=== PATIENT | male | born 1960 | race Caucasian/White ===

== ENCOUNTER 2017-08-16 08:52 | Emergency (ER) | payer BC ==
[~2017-08-16] VITALS: Ht 177.8 cm; Wt 83.9 kg
--- NOTE | ~2017-08-16 | EKG ---
[place] [address] [facility] [place] [address] ELECTROCARDIOGRAM REPORT Name: ANDREZ ALLISON Room #: DEP [place]#: [id number] Admission: 08/16/17 Attend Phys: Discharge: 08/16/17 Date of : 64 Report #: [id number] THIS REPORT FOR: //name// [facility] ED Test Date: 2017-08-16 Test Time: 09:44:28 Pat Name: ANDREZ ALLISON Department: Room: Gender: Mine Engineer: [facility] : 1960 Requested By: Victor M Raphael Order Number: [id number] MD: Vazquez Cano Measurements Intervals [place] Rate: 72 P: [place]: QRS: 23 QRSD: 101 T: 7 QT: 376 QTc: 412 Interpretive Statements Sinus rhythm. Borderline ST elevation, lateral leads No previous ECG available for comparison Electronically Signed On 08-16-2017 13:50:30 [employer] by Vazquez Cano [email or web address] <ELECTRONICALLY SIGNED> By: Vazquez Cano MD 08/16/17 1350 0944 0944 Vazquez Cano MD /GWEN
[2017-08-16] MEDS ORDERED: OSELB75 PO (09:24)
[2017-08-16 10:08] LABS: MCH 30.4 pg (26.0-34.0); MCHC 34.9 g/dL (28.0-37.0); MCV 87.2 fL (80.0-100.0); RBC 5.27 mil/uL (4.50-6.00); RDW 13.4 % (10.5-14.5); WBC 7.9 thou/uL (4.0-11.0)
[2017-08-16 10:22] LABS: ANION GAP 11 mmol/L (7-16); BUN 18 mg/dL (7-18); CALCIUM 9.6 mg/dL (8.5-10.1); CHLORIDE 106 mmol/L (98-107); CO2 24 mmol/L (21-32); CREATININE 1.1 mg/dL (0.7-1.3); GLUCOSE 77 mg/dL (74-106); POTASSIUM 3.9 mmol/L (3.5-5.1); SODIUM 141 mmol/L (136-145)
[2017-08-16 10:25] LABS: TROPONIN-I < 0.04 ng/mL (<0.06)
== END 2017-08-16 11:58 | disposition home or self-care (01) ==
LOC: ER 08:52
PROVIDERS: Emergency Medicine
DX: R07.9 Chest pain, unspecified (principal); F17.210 Nicotine dependence, cigarettes, uncomplicated

== ENCOUNTER 2017-12-23 19:47 | Emergency (ER) | payer BC ==
[~2017-12-23] VITALS: Ht 180.3 cm; Wt 83.9 kg
[~2017-12-23 19:47] MED LIST: OSELB75 PO
[2017-12-23] MEDS ORDERED: ASPIR 8181 MG PO (20:17)
[2017-12-23 21:38] LABS: ABSOLUTE NEUTROPHILS 6.6 thou/uL (1.4-8.2); BASOPHILS 0.6 % (0.0-2.0); EOSINOPHILS 2.4 % (0.0-3.0); HEMATOCRIT 44.2 % (42.0-52.0); HEMOGLOBIN 15.3 gm/dL (14.0-18.0); LYMPHOCYTES 21.9 % (24.0-44.0); MCH 30.5 pg (26.0-34.0); MCHC 34.7 g/dL (28.0-37.0); MCV 87.8 fL (80.0-100.0); MONOCYTES 7.7 % (1.0-8.0); PLATELET COUNT 188 thou/uL (150-400); POLYS 67.4 % (36.0-66.0); RBC 5.04 mil/uL (4.50-6.00); RDW 13.6 % (10.5-14.5); WBC 9.8 thou/uL (4.0-11.0)
[2017-12-23 21:44] LABS: CALCIUM 9.7 mg/dL (8.5-10.1); POTASSIUM 3.7 mmol/L (3.5-5.1)
[2017-12-23 22:16] LABS: URINE BILIRUBIN NEGATIVE (Negative); URINE BLOOD NEGATIVE (Negative); URINE CLARITY CLEAR; URINE COLOR YELLOW; URINE GLUCOSE-RANDOM* NEGATIVE (Negative); URINE KETONES NEGATIVE (Negative); URINE LEUKOCYTES-REFLEX NEGATIVE (Negative); URINE NITRITE-REFLEX NEGATIVE (Negative); URINE PROTEIN (DIPSTICK) NEGATIVE (Negative); URINE SPECIFIC GRAVITY 1.025 (1.005-1.035); URINE UROBILINOGEN 0.2 E.U./dl (0.2-1.0)
[2017-12-23] MEDS ORDERED: NORCO 10-325 T1 EACH PO (22:46)
[2017-12-23 23:05] VITALS: BP 121/70
== END 2017-12-23 23:07 | disposition home or self-care (01) ==
LOC: ER 19:47
PROVIDERS: Physician Assistant
DX: K40.90 Unilateral inguinal hernia, without obstruction or gangrene, not specified as recurrent (principal); I10 Essential (primary) hypertension; F17.210 Nicotine dependence, cigarettes, uncomplicated

== ENCOUNTER 2018-11-22 13:38 | Emergency (ER) | payer BC ==
[~2018-11-22] VITALS: Ht 177.8 cm; Wt 83.9 kg
[~2018-11-22 13:38] MED LIST changes: +ASPIR 8181 MG PO; +NORCO 10-325 T1 EACH PO
[2018-11-22 14:04] LABS: URINE BILIRUBIN NEGATIVE (Negative); URINE BLOOD NEGATIVE (Negative); URINE CLARITY CLEAR; URINE COLOR YELLOW; URINE GLUCOSE-RANDOM* NEGATIVE (Negative); URINE KETONES NEGATIVE (Negative); URINE LEUKOCYTES-REFLEX NEGATIVE (Negative); URINE NITRITE-REFLEX NEGATIVE (Negative); URINE PROTEIN (DIPSTICK) NEGATIVE (Negative); URINE UROBILINOGEN 0.2 E.U./dl (0.2-1.0)
[2018-11-22 15:58] VITALS: BP 116/66
== END 2018-11-22 16:04 | disposition home or self-care (01) ==
LOC: ER 13:38
PROVIDERS: Emergency Medicine
DX: I86.1 Scrotal varices (principal); F17.210 Nicotine dependence, cigarettes, uncomplicated; I10 Essential (primary) hypertension